=== PATIENT | male | born 1975 ===

== ENCOUNTER 2018-07-14 09:29 | Emergency (ER) | payer BC, OTHER ==
[2018-07-14] MEDS ORDERED: Silver Sulfadiazine 1%* 20 GM ONE (10:59)
[2018-07-14] MEDS ORDERED: Tetan/Diph/Pertus SYR(Tdap)* 0.5 ML SYR(BOOSTRIX) use SYR IM ONE (11:44)
--- NOTE | 2018-07-14 11:48 | UC ---
Skin Complaint HPI - HPI Summary HPI Summary: [place] IN THE [facility] 3 DAYS AGO AND SUSTAINED A SUNBURN TO HIS ANTERIOR LEGS FROM THE THIGHS TO HIS FEET. NOW HAS BLISTERS AT THE ANKLES. SOME HAVE RUPTURED. NO FEVER OR SOB. LAST TETANUS 6 YEARS AGO. - History of Current Complaint Chief Complaint: UCSkin Time Seen by Provider: 07/14/18 11:34 Stated Complaint: SUNBURN Hx Obtained From: Patient Onset/Duration: Gradual Onset, Lasting Days, Still Present Timing: Constant Onset Severity: Moderate Current Severity: Moderate Pain Intensity: 5 Pain Scale Used: 0-10 Numeric Character: Swelling, Pain, Redness Aggravating Factor(s): Touch Alleviating Factor(s): Nothing Associated Signs & Symptoms: Positive: Drainage, Tenderness. Negative: Nausea, Fever, Chills - Allergy/Home Medications Allergies/Adverse Reactions: Allergies Allergy/AdvReac Type Severity Reaction Status Date / Time No Known Allergies Allergy Verified 07/14/18 09:50 Review of Systems Constitutional: Negative Skin: Other - ERYTHEMA AND BLISTERING Respiratory: Negative Cardiovascular: Negative Gastrointestinal: Negative All Other Systems Reviewed And Are Negative: Yes PMH/Surg Hx/FS Hx/Imm Hx Previously Healthy: Yes - Surgical History Surgical History: Yes Surgery Procedure, Year, and Place: None within past 6 years; no abdominal surgeries. MENISCUS REPAIR X3 21 YEARS AGO. TONSILLECTOMY AT 17 YEAR OLD - Family History Known Family History: Positive: Hypertension - Social History Alcohol Use: Occasionally Substance Use Type: None Smoking Status (MU): Never Smoked Tobacco - Immunization History Most Recent Influenza Vaccination: NONE Most Recent Tetanus Shot: 2011 Physical Exam Triage Information Reviewed: Yes Appearance: Well-Appearing, No Pain Distress, Well-Nourished Vital Signs: Initial Vital Signs Temp 98.9 F 07/14/18 09:46 Pulse 87 07/14/18 09:46 Resp 18 07/14/18 09:46 BP 132/81 07/14/18 09:46 Pulse Ox 99 07/14/18 09:46 Vital Signs Reviewed: Yes Eyes: Positive: Conjunctiva Clear ENT: Positive: Hearing grossly normal Neck: Positive: Supple Respiratory: Positive: No respiratory distress, No accessory muscle use Cardiovascular: Positive: Pulses Normal Abdomen Description: Positive: Soft Musculoskeletal: Positive: Edema @ - 1+ BILATERAL ANKLE AND FOOT EDEMA Neurological: Positive: Alert Psychological: Positive: Age Appropriate Behavior Skin: Positive: Other - BILATERAL LOWER EXTREMITIES ERYTHEMATOUS FROM THE THIGHS TO THE FEET ANTERIORLY. HAS INTACT BLISTERS RIGHT ANKLE AND RUPTURED BLISTERS LEFT ANKLE WITH SEROUS DRAINAGE. TENDER. Course/Dx - Diagnoses Provider Diagnoses: SUPERFICIAL PARTIAL THICKNESS BURN/SUNBURN - BILATERAL LOWER EXTREMITIES Discharge - Sign-Out/Discharge Documenting (check all that apply): Patient Departure - Discharge Plan Condition: Stable Disposition: HOME Prescriptions: Cephalexin CAP* [Keflex 500 CAP*] 1,000 mg PO BID #[id number] Patient Education Materials: Sunburn (ED), Second Degree Burn (ED) Referrals: Loretta Lang MD [Primary Care Provider] - If Needed Additional Instructions: CHANGE BANDAGE DAILY AND NEEDED IF IT BECOMES SOILED OR WET. SEEK FOLLOW-UP IF YOU DEVELOP PURULENT DRAINAGE, FEVER, INCREASED PAIN OR ANY OTHER CONCERNING SYMPTOMS. TAKE CEPHALEXIN TWICE DAILY FOR 7 DAYS TO HELP PREVENT INFECTION. IBUPROFEN MAX DOSE: 600MG (3 TABS) EVERY 6 HRS OR 800MG (4 TABS) EVERY 8 HRS OR NAPROXEN MAX DOSE: 440MG (2 TABS) EVERY 12 HRS TYLENOL MAX DOSE: 1000MG (2 EXTRA STRENGTH TABS) EVERY 8 HRS OR 650MG (2 REGULAR TABS) EVERY 6 HRS TETANUS IMMUNIZATION GIVEN (TDAP): You have been given an immunization against tetanus. Please record this in your records. In general, a booster is needed only once every 10 years. The tetanus shot protects against tetanus or "lockjaw," which is a complication of certain wound infections (the tetanus shot cannot protect against the actual infection). The immunization site may become warm and red due to local reaction. If this occurs, apply warm compresses and take aspirin or ibuprofen to reduce inflammation and discomfort. Return for evaluation if the reaction becomes severe. - Billing Disposition and Condition Condition: STABLE Disposition: Home
[2018-07-14 12:15] VITALS: BP 125/78
== END 2018-07-14 12:10 | disposition home or self-care (01) ==
LOC: UCEAST 09:29
DX: L55.1 Sunburn of second degree (principal); R60.0 Localized edema; Z23 Encounter for immunization
CPT/HCPCS: 90715; 99203; A9270-GY; G0463